=== PATIENT | male | born 1970 | race Caucasian/White ===

== ENCOUNTER 2018-01-16 14:20 | Emergency (ER) | payer OTHER ==
[2018-01-16 14:20] VITALS: BMI 24.7
[2018-01-16 14:51] VITALS: BP 114/66; PULSE 72; RESP 16; TEMP 98.5; O2SAT 98
--- NOTE | 2018-01-16 16:10 | C.PDOC ---
History Of Present Illness 47 year old male presents to ED for medication refill. Patient reports he took his last does yesterday. Patient has no medical complaints. Time Seen by Provider: 01/16/18 15:13 Chief Complaint (Nursing): Med Refill History Per: Patient History/Exam Limitations: no limitations Past Medical History Reviewed: Historical Data, Nursing Documentation, Vital Signs Vital Signs: Last Vital Signs Temp 98.5 F 01/16/18 14:48 Pulse 72 01/16/18 14:48 Resp 16 01/16/18 14:48 BP 114/66 01/16/18 14:48 Pulse Ox 98 01/16/18 14:48 - Medical History PMH: HTN Surgical History: No Surg Hx Family History: States: No Known Family Hx - Social History Hx Alcohol Use: No Hx Substance Use: No - Immunization History Hx Tetanus Toxoid Vaccination: No Hx Influenza Vaccination: No Hx Pneumococcal Vaccination: No Review Of Systems Except As Marked, All Systems Reviewed And Found Negative. Constitutional: Negative for: Fever, Chills Respiratory: Negative for: Cough, Shortness of Breath Gastrointestinal: Negative for: Nausea, Vomiting, Diarrhea Neurological: Negative for: Weakness, Numbness Physical Exam - Physical Exam Appears: Non-toxic, No Acute Distress Skin: Warm, Dry Head: Atraumatic, Normacephalic Eye(s): bilateral: PERRL, EOMI Oral Mucosa: Moist Neck: Normal ROM, Supple Chest: Symmetrical, No Deformity Cardiovascular: Rhythm Regular, No Friction Rub, No Murmur Respiratory: Normal Breath Sounds, No Rales, No Rhonchi, No Wheezing Gastrointestinal/Abdominal: Soft, No Tenderness Extremity: Normal ROM, No Swelling Neurological/Psych: Oriented x3 Gait: Steady ED Course And Treatment O2 Sat by Pulse Oximetry: 98 (RA) Pulse Ox Interpretation: Normal Medical Decision Making Medical Decision Making: Refilled his medication and discharged home. Patient instructed to follow up with clinic Disposition - Disposition Referrals: [facility] [Outside] Disposition: HOME/ ROUTINE Disposition Time: 16:07 Condition: STABLE Additional Instructions: Follow up with the medical doctor within 1-2 days without fail. Return if worsened. Prescriptions: Mycophenolate Mofetil [Cellcept] 500 mg PO BID #20 tab Prednisone [Bernardo] 5 mg PO DAILY #10 tcp Tacrolimus [Prograf] 5 mg PO BID #20 cap Instructions: Where to Get Help Paying for Your Prescriptions Forms: [employer] (Urdu) Print Language: MALAY - Clinical Impression Clinical Impression: Review of medication, Medication refill - PA / DOCUMENTATION BILLING CLERK / Resident Statement MD/DO has reviewed & agrees with the documentation as recorded. - Scribe Statement The provider has reviewed the documentation as recorded by the Scribe Brandon Balderas All medical record entries made by the Eileen were at my direction and personally dictated by me. I have reviewed the chart and agree that the record accurately reflects my personal performance of the history, physical exam, medical decision making, and the department course for this patient. I have also personally directed, reviewed, and agree with the discharge instructions and disposition.
== END 2018-01-16 16:00 | disposition home or self-care (01) ==
LOC: C.ER 14:20
DX: Z76.0 Encounter for issue of repeat prescription (principal); I10 Essential (primary) hypertension